=== PATIENT | male | born 1995 | race Caucasian/White ===

== ENCOUNTER 2017-12-24 02:49 | Emergency (ER) | payer OTHER ==
[~2017-12-24] VITALS: Ht 170.2 cm; Wt 59.9 kg
--- NOTE | 2017-12-24 03:20 | NUR ---
PT IS REFUSING EKG.
--- NOTE | 2017-12-24 03:29 | NUR ---
EKG IN PROGRESS.
--- NOTE | 2017-12-24 03:42 | NUR ---
Patient discharged to home in stable condition. Written and verbal after care instructions given. Patient verbalizes understanding of instruction. PT AMBULATED OUT WITH A STEADY GAIT. VSS. PT'S FRIEND IS DRIVING PT HOME.
[2017-12-24 03:45] VITALS: BP 148/78
== END 2017-12-24 03:45 | disposition home or self-care (01) ==
LOC: ER 02:49
DX: F18.129 Inhalant abuse with intoxication, unspecified (principal); R55 Syncope and collapse; G40.909 Epilepsy, unspecified, not intractable, without status epilepticus
CPT/HCPCS: 82962-TC; A4606; Z7610

== ENCOUNTER 2017-12-28 15:15 | Emergency (ER) | payer OTHER ==
[~2017-12-28] VITALS: Ht 167.6 cm; Wt 68.0 kg
[2017-12-28 15:15] VITALS: BP 123/71
[2017-12-28] MEDS ORDERED: ACETAMINOPHEN 325 MG TABLET ONE (15:47)
[2017-12-28] MEDS ORDERED: METOCLOPRAMIDE HCL 10 MG/2 ML VIAL ONE (15:47)
[2017-12-28] MEDS ORDERED: ACETAMINOPHEN 650 MG/20.3 ML UDC PO ONE (16:00)
[2017-12-28] MEDS ORDERED: METOCLOPRAMIDE HCL 10 MG/2 ML VIAL IV ONE (16:00)
[2017-12-28] MEDS ORDERED: IV NS 0.9% 1,000 ML IV PRN (16:00)
[2017-12-28 16:04] LABS: BASOPHILS # (AUTO) 0.1 /CMM (0.0-0.2); BASOPHILS % (AUTO) 0.7 % (0.0-2.0); EOSINOPHILS % (AUTO) 0.9 % (0.0-6.0); HEMATOCRIT 42 % (39-51); HEMOGLOBIN 14.5 g/dL (13.5-17.5); LYMPHOCYTES # (AUTO) 1.3 /CMM (0.8-4.8); LYMPHOCYTES % (AUTO) 10.4 % (20.0-44.0); MEAN CORPUSCULAR HGB CONC 35 g/dl (31.0-36.0); MEAN CORPUSCULAR VOLUME 86 fL (80-96); MONOCYTES # (AUTO) 0.8 /CMM (0.1-1.30); MONOCYTES % (AUTO) 6.3 % (2.0-12.0); NEUTROPHILS # (AUTO) 10.5 /CMM (1.8-8.9); NEUTROPHILS % (AUTO) 81.7 % (43.0-81.0); PLATELET COUNT (AUTO) 328 /CMM (150-450); RED BLOOD CELL COUNT(AUTO) 4.91 MIL/uL (4.5-6.0); WHITE BLOOD COUNT (AUTO) 12.8 K/uL (4.3-11.0)
[2017-12-28 16:05] LABS: CREATININE 0.8 mg/dL (0.6-1.3); POTASSIUM 4.6 mmol/L (3.5-5.1)
[2017-12-28 16:08] LABS: INR 0.91 (0.85-1.15)
[2017-12-28 16:10] LABS: BILIRUBIN,TOTAL 0.3 mg/dL (0.2-1.0); MAGNESIUM 1.9 mg/dL (1.8-2.4); TOTAL PROTEIN, SERUM 7.9 g/dL (6.4-8.2)
[2017-12-28 16:31] LABS: THYROID STIMULATING HORMONE 0.178 uIU/mL (0.358-3.74)
--- NOTE | 2017-12-28 16:36 | NUR ---
PATIENTS MOTHER CALLED TO PROVIDE CONTACT INFORMATION, PAULINA WOODALL .
--- NOTE | 2017-12-28 16:54 | NUR ---
URINE SAMPLE COLLECTED, SEND TO LAB
[2017-12-28 17:51] LABS: APPEARANCE,URINE Clear (CLEAR); BILIRUBIN,URINE Negative (NEGATIVE); BLOOD, URINE Negative Ery/uL (NEGATIVE); COLOR,URINE Yellow (YELLOW); KETONES,URINE Negative (NEGATIVE); LEUKOCYTE ESTERASE ,URINE Negative (NEGATIVE); NITRITE, URINE Negative (NEGATIVE); PH,URINE 7.5 (5.0-8.0); PROTEIN,URINE Negative (NEGATIVE); UGLUCOSE Negative (NEGATIVE); UROBILINOGEN,URINE 0.2 EU/dL (0.2)
--- NOTE | 2017-12-28 18:30 | NUR ---
IV removed. Catheter intact and site benign. Pressure and 4x4 applied to site. No bleeding noted.Patient discharged to home in stable condition. Written and verbal after care instructions given. Patient verbalizes understanding of instruction.
[2017-12-28 18:43] LABS: LYMPHOCYTES % (MANUAL) 8 % (16-48); MONOCYTES % (MANUAL) 10 % (0-11.0); NEUTROPHILS % (MANUAL) 82 (42-76)
== END 2017-12-28 18:32 | disposition home or self-care (01) ==
LOC: ER 15:19
DX: S02.2XXA Fracture of nasal bones, initial encounter for closed fracture (principal); R55 Syncope and collapse; R56.9 Unspecified convulsions; D72.829 Elevated white blood cell count, unspecified; F10.10 Alcohol abuse, uncomplicated; W01.198A Fall on same level from slipping, tripping and stumbling with subsequent striking against other object, initial encounter; Y93.89 Activity, other specified; Y92.89 Other specified places as the place of occurrence of the external cause; Y99.8 Other external cause status
CPT/HCPCS: 36415; 70450-TC; 70486-TC; 71046; 80053-TC; 80305; 81000-TC; 82550-TC; 83735-TC; 84439-TC; 84443-TC; 85025-TC; 85730-TC; A4606; J2765; J7030; Z7610